=== PATIENT | female | born 2005 | race Caucasian/White ===

== ENCOUNTER 2024-02-13 02:00 | Emergency (ER) | payer SELFPAY ==
[~2024-02-13] VITALS: Ht 170.2 cm; Wt 54.5 kg
[2024-02-13 02:06] VITALS: TEMP 97.5
[2024-02-13] MEDS ORDERED: diphenhydrAMINE 50 MG/ML 1 ML VIAL IV ONE (02:15)
[2024-02-13] MEDS ORDERED: methylPREDNISolone Sod Succ 125 MG/2 ML VIAL IV ONE (02:15)
[2024-02-13] MEDS ORDERED: Ondansetron 4 MG/2 ML VIAL IV ONE (02:30)
[2024-02-13] MEDS ORDERED: CLEOCIN HCL300 MG PO (03:09)
[2024-02-13 03:16] VITALS: BP 113/84; PULSE 73
== END 2024-02-13 03:16 | disposition home or self-care (01) ==
LOC: COL.ER 02:00
DX: R21 Rash and other nonspecific skin eruption (principal); T36.0X5A Adverse effect of penicillins, initial encounter
CPT/HCPCS: J1200; J2405; J2919